=== PATIENT | female | born 1960 | race Caucasian/White ===

== ENCOUNTER 2016-09-17 11:16 | Emergency (ER) | payer OTHER ==
[~2016-09-17] VITALS: Ht 157.5 cm; Wt 52.2 kg
[~2016-09-17 11:16] MED LIST: CYCL5TAB PO; NAPR500T3 PO
--- NOTE | 2016-09-17 11:45 | ED Back Pain ---
General Chief Complaint: -Female Stated Complaint: L SIDE BACK/LEG PAIN Nursing Triage Note: Pt presents to ED with c/o bilateral flank pain and foul smelling urine. Pt reports chronic right flank pain x 1 year, left side began hurting 3 days ago. Afebrile in triage. Nursing Sepsis Screen: No Definite Risk History of Present Illness Time Seen by Provider: 11:41 Initial Comments This 56-year-old white female presents to emergency department with bilateral flank pain and foul-smelling urine. Patient relates her symptoms began 3 days ago. Patient relates an history of kidney stones and urinary tract infections. Patient also relates that her pain is made worse with leg movement. The pain radiates from low back down the posterior thighs. She denies loss of bowel or bladder control. She's had no perineal anesthesia. The patient denies fever or chill, vomiting, hematuria, diarrhea, vomiting, or epigastric pain. Allergies and Home Medications Allergies Coded Allergies: Penicillins (Verified Allergy, Mild, 08/12/15) Home Medications Cyclobenzaprine HCl 5 Mg Tablet #15 5 MG PO Q8H Prescribed by: LISETH RANDALL on 08/12/15 1330 Naproxen 500 Mg Tablet #20 500 MG PO BID Prescribed by: LISETH RANDALL on 08/12/15 1330 Constitutional: No chills, No fever EENTM: No eye pain Respiratory: No cough Cardiovascular: No chest pain Gastrointestinal: No abdominal pain, No diarrhea, No vomiting Genitourinary: dysuria other (malodorous urine) Musculoskeletal: other (bilateral flank pain) Skin: No rash Psychiatric/Neurological: No Symptoms Reported Past [id number]-Jajphd-Swawcq Hx Patient Social History Alcohol Use: Denies Use Recreational Drug Use: No Smoking Status: Current Everyday Smoker Type Used: Cigarettes Recent Foreign Travel: No Contact w/Someone Who Travel: No Recent Infectious Disease Expo: No Recent Hopitalizations: No Physical Abuse Screen: No Sexual Abuse: No Surgeries HX Surgeries: Yes Surgeries: Adenoidectomy, Gallbladder, Tonsillectomy, Tubal Ligation Respiratory Hx Respiratory Disorders: No Cardiovascular Hx Cardiac Disorders: No Neurological Hx Neurological Disorders: No Reproductive System [employer] History: Tubal Ligation Genitourinary Hx Genitourinary Disorders: No Gastrointestinal Hx Gastrointestinal Disorders: Yes Gastrointestinal Disorders: Gastroesophageal Reflux Musculoskeletal Hx Musculoskeletal Disorders: Yes Musculoskeletal Disorders: Chronic Back Pain Endocrine Hx Endocrine Disorders: No HEENT HX ENT Disorders: No Cancer Hx Cancer: No Psychosocial Hx Psychiatric Problems: No Integumentary HX Skin/Integumentary Disorder: No Blood Transfusions Hx Blood Disorders: No Adverse Reaction to a Blood Tr: No Reviewed Nursing Assessment Reviewed/Agree w Nursing PMH: Yes Physical Exam Vital Signs Vital Sign - Last 12Hours 09/17/16 11:22 Temp 97.6 Pulse 70 Resp 18 B/P 117/75 Pulse Ox 97 O2 Delivery Room Air Capillary Refill : Less Than 3 Seconds General Appearance: Cachetic Mild Distress HEENT: Normal ENT Inspection Neck: Normal Inspection Cardiovascular: Regular Rate, Rhythm Respiratory: No Respiratory Distress Decreased Breath Sounds Gastrointestinal: Normal Bowel Sounds No Organomegaly Non Tender Soft Extremity: Normal Inspection Normal Range of Motion Neurologic/Psychiatric: No Motor/Sensory Deficits Normal Mood/Affect Skin: Normal Color Warm/DryNo Rash Progress/Results/Core Measures Results/Orders Lab Results Laboratory Tests Test 09/17/16 11:32 09/17/16 11:37 Range/Units Urine Bacteria NEGATIVE /HPF Urine Bilirubin NEGATIVE NEGATIVE Urine Casts NONE /LPF Urine Clarity CLEAR Urine Color YELLOW Urine Crystals NONE /LPF Urine Culture Indicated NO Urine Glucose (UA) NEGATIVE NEGATIVE Urine Ketones NEGATIVE NEGATIVE Urine Leukocyte Esterase 3+ H NEGATIVE Urine Mucus NEGATIVE /LPF Urine Nitrite NEGATIVE NEGATIVE Urine Protein NEGATIVE NEGATIVE Urine RBC 0-2 /HPF Urine RBC (Auto) 2+ H NEGATIVE Urine Specific [place] 1.015 L 1.016-1.022 Urine Squamous Epithelial Cells 2-5 /HPF Urine Urobilinogen NORMAL NORMAL MG/DL Urine WBC 2-5 /HPF Urine pH 6 5-9 Alanine Aminotransferase (ALT/SGPT) 13 0-55 U/L Albumin 4.0 3.2-4.5 G/DL Alkaline Phosphatase 83 40-136 U/L Anion Gap 10 5-14 MMOL/L Aspartate Amino Transf (AST/SGOT) 17 5-34 U/L BUN/Creatinine Ratio 19 Basophils # (Auto) 0.0 0.0-0.1 10^3/uL Basophils (%) (Auto) 1 0-10 % Blood Urea Nitrogen 14 7-18 MG/DL Calcium Level 9.6 8.5-10.1 MG/DL Carbon Dioxide Level 24 21-32 MMOL/L Chloride Level 105 98-107 MMOL/L Creatinine 0.72 0.60-1.30 MG/DL Eosinophils # (Auto) 0.1 0.0-0.3 10^3/uL Eosinophils (%) (Auto) 2 0-10 % Estimat Glomerular Filtration Rate > 60 Glucose Level 82 70-105 MG/DL Hematocrit 42 35-52 % Hemoglobin 14.4 11.5-16.0 G/DL Lymphocytes # (Auto) 1.4 1.0-4.0 X 10^3 Lymphocytes (%) (Auto) 25 12-44 % Mean Corpuscular Hemoglobin 30 25-34 PG Mean Corpuscular Hemoglobin Concent 34 32-36 G/DL Mean Corpuscular Volume 87 80-99 FL Mean Platelet Volume 10.1 7.4-10.4 FL Monocytes # (Auto) 0.5 0.0-1.0 X 10^3 Monocytes (%) (Auto) 9 0-12 % Neutrophils # (Auto) 3.7 1.8-7.8 X 10^3 Neutrophils (%) (Auto) 64 42-75 % Platelet Count 136 130-400 10^3/uL Potassium Level 3.9 3.6-5.0 MMOL/L Red Blood Count 4.86 4.35-5.85 10^6/uL Red Cell Distribution Width 13.9 10.0-14.5 % Sodium Level 139 135-145 MMOL/L Total Bilirubin 0.3 0.1-1.0 MG/DL Total Protein 6.8 6.4-8.2 G/DL White Blood Count 5.8 4.3-11.0 10^3/uL My Orders Orders-GUERITA MOROCHO MD Ua Culture If Indicated (09/17/16 11:35) Cbc With Automated Diff (09/17/16 11:35) Comprehensive Metabolic Panel (09/17/16 11:35) Ct Lumbar Spine Wo (09/17/16 11:38) Ct Abdomen/Pelvis Wo (09/17/16 12:07) Urine Culture (09/17/16 13:27) Vital Signs/I&O Vital Sign - Last 12Hours 09/17/16 11:22 Temp 97.6 Pulse 70 Resp 18 B/P 117/75 Pulse Ox 97 O2 Delivery Room Air Blood Pressure Mean: 89 Progress Note : Time: 13:39 Progress Note The patient's CTs demonstrated evidence of significant compression of the sciatic nerve. Although there was diffuse nephrolithiasis present there was no evidence of acute ureteral stone. The patient's urinalysis was suggestive of a urinary tract infection. A culture was obtained. I discussed with the patient the findings and recommended a course of antibiotics (Cipro) for her urinary tract infection and gave her a prescription of hydrocodone for her back pain. I asked that she follow-up with her caregiver at [facility] on Monday. I invited her to return to the emergency department over the weekend if she had any further problems or questions. Departure Impression Impression: Primary Impression: Kidney stones Additional Impressions: UTI (urinary tract infection) Qualified Code: N30.00 - Acute cystitis without hematuria Sciatic neuritis Qualified Code: M54.31 - Sciatica, right side Disposition: HOME, SELF-CARE Condition: Unchanged Departure-Patient Inst. Decision time for Depature: 13:42 Referrals: [facility] (PCP/Family) Primary Care Physician Patient Instructions: Acute Cystitis (DC), Kidney Stones (DC), Sciatica (DC) Add. Discharge Instructions: Cipro and hydrocodone as prescribed. Close follow-up with [facility] on Monday. Return of any problems or questions. All discharge instructions reviewed with patient and/or family. Voiced understanding. GUERITA MOROCHO MD Sep 17, 2016 11:45
[2016-09-17 11:51] LABS: BASOPHILS % (AUTO) 1 % (0-10); EOSINOPHILS # (AUTO) 0.1 10^3/uL (0.0-0.3); EOSINOPHILS % (AUTO) 2 % (0-10); LYMPHOCYTES # (AUTO) 1.4 X 10^3 (1.0-4.0); LYMPHOCYTES % (AUTO) 25 % (12-44); MEAN CORPUSCULAR HEMOGLOBIN 30 PG (25-34); MEAN CORPUSCULAR HGB CONC 34 G/DL (32-36); MEAN CORPUSCULAR VOLUME 87 FL (80-99); MEAN PLATELET VOLUME 10.1 FL (7.4-10.4); MONOCYTES # (AUTO) 0.5 X 10^3 (0.0-1.0); MONOCYTES % (AUTO) 9 % (0-12); NEUTROPHILS # (AUTO) 3.7 X 10^3 (1.8-7.8); NEUTROPHILS % (AUTO) 64 % (42-75); PLATELET COUNT 136 10^3/uL (130-400); RED BLOOD COUNT 4.86 10^6/uL (4.35-5.85); RED CELL DISTRIBUTION WIDTH 13.9 % (10.0-14.5); WHITE BLOOD COUNT 5.8 10^3/uL (4.3-11.0)
[2016-09-17 11:57] LABS: PH,URINE 6 (5-9); PROTEIN,URINE NEGATIVE (NEGATIVE)
[2016-09-17 11:58] LABS: BILIRUBIN,URINE NEGATIVE (NEGATIVE); KETONES,URINE NEGATIVE (NEGATIVE); LEUKOCYTE ESTERASE ,URINE 3+ (NEGATIVE); NITRITE,URINE NEGATIVE (NEGATIVE); UROBILINOGEN,URINE NORMAL (NORMAL)
[2016-09-17 12:25] LABS: ALANINE AMINOTRANSFERASE 13 U/L (0-55); ANION GAP 10 MMOL/L (5-14); ASPARTATE AMINO TRANSFERASE 17 U/L (5-34); BILIRUBIN,TOTAL 0.3 MG/DL (0.1-1.0); BLOOD UREA NITROGEN 14 MG/DL (7-18); BUN/CREATININE RATIO 19; CALCIUM 9.6 MG/DL (8.5-10.1); CARBON DIOXIDE 24 MMOL/L (21-32); CHLORIDE 105 MMOL/L (98-107); CREATININE SERUM 0.72 MG/DL (0.60-1.30); GFR ESTIMATED > 60; GLUCOSE 82 MG/DL (70-105); POTASSIUM 3.9 MMOL/L (3.6-5.0); SODIUM 139 MMOL/L (135-145); TOTAL PROTEIN 6.8 G/DL (6.4-8.2)
--- NOTE | 2016-09-17 12:38 | Diagnostic Imaging Report ---
PROCEDURE: CT lumbar spine without contrast. TECHNIQUE: Multiple contiguous axial images were obtained through the lumbar spine without the use of intravenous contrast. Sagittal and coronal reformations were then performed. INDICATION: Chronic low back pain. Left leg pain x1 year. FINDINGS: Reformatted images demonstrate relatively normal alignment of the lumbar spine. Lumbar vertebral body heights are maintained. The intervertebral disc spaces overall are fairly well-maintained. Slight asymmetric disc bulge is suggested at the L4-L5 and L5-S1 levels with minimal encroachment and effacement of the perineural fat bilaterally. Definitive nerve impingement however does not appear to be present. L3-L4 and L4-5 levels both demonstrate ligamentum facet hypertrophy with [id number] spinal canal narrowing, particularly at the L4-L5 level. Paraspinal soft tissues demonstrate multiple renal stones and the possibility of underlying medullar nephrocalcinosis. Definitive obstructive uropathy however is not suggested. IMPRESSION: 1. Negative for acute bony abnormality of the lumbar spine. 2. There does appear to be at least moderate severity spinal canal narrowing at the L4-5 level in combination with a broad-based disc bulge along with ligamentum facet hypertrophy. Less severe findings at L3-L4 level. There is also mild foraminal narrowing at L4-5 and L5-S1 levels owing to disc osteophyte formation. 3. 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 Given overall findings, if further assessment is desired, a nonemergent MRI would be recommended. Dictated by: Dictated on workstation # [id number]
--- NOTE | 2016-09-17 12:39 | Diagnostic Imaging Report ---
PROCEDURE: CT abdomen and pelvis without contrast. TECHNIQUE: Multiple contiguous axial images were obtained through the abdomen and pelvis without the use of intravenous contrast. INDICATION: Pain, history of nephrolithiasis. Compared to 05/05/2016. FINDINGS: Bilateral renal calculus disease unchanged in extent and magnitude from prior but no hydronephrosis, no perinephric edema. No opaque ureteral stone. The urinary bladder had an unremarkable appearance. Some pelvic phleboliths on the right chronic and extraureteral. Uterus, adnexa and urinary bladder normal. The air-containing appendix normal. There is no diverticulitis. The gallbladder surgically absent. Pancreas and peripancreatic fat unremarkable. There are splenic granulomata with normal spleen size. IMPRESSION: Extensive bilateral renal calculus disease but no hydronephrosis or opaque ureteral stone. Negative appendix. No adnexal lesion. No acute finding. Dictated by: Dictated on workstation # [id number]
[2016-09-17 13:56] VITALS: BP 120/70
== END 2016-09-17 13:56 | disposition home or self-care (01) ==
LOC: EDUNIT# 11:16 → ER 11:18
DX: N20.0 Calculus of kidney (principal); N39.0 Urinary tract infection, site not specified; M48.06 Spinal stenosis, lumbar region; M51.16 Intervertebral disc disorders with radiculopathy, lumbar region
CPT/HCPCS: 36415; 72131; 74176; 80053; 81000; 85025; 87088

== ENCOUNTER 2016-10-28 09:40 | Outpatient (CLI) | payer OTHER ==
[~2016-10-28] VITALS: Ht 157.5 cm; Wt 54.4 kg
[2016-10-28] MEDS ORDERED: TRIAMCINOLONE ACET (KENALOG-40) 40 MG/ML 1 ML VIAL ONE (09:50)
[2016-10-28] MEDS ORDERED: BUPIVACAINE 0.25% 30 ML (SENSORCAINE) VIAL ONE (09:50)
[2016-10-28 10:01] VITALS: BP 110/70
[2016-10-28 10:29] VITALS: BP 116/62
--- NOTE | 2016-10-28 14:15 | Pain Medicine-Procedure ---
Procedure Pre-Op/Post-Op Diagnosis Diagnosis: disc disorder with radiculopathy, lumbar Indications for Operation Low back pain Attending Surgeon Rachel Procedure Date of Service: Oct 28, 2016 Procedure: Lumbar Epidural Steroid Injection at the L4-L5 level under Fluoroscopic Guidance Procedure: Patient was identified in the holding area. After risks, benefits, and alternatives were discussed with the patient, informed consent was obtained. Patient was brought to the fluoroscopy suite and placed prone on the procedure room table. A time out was performed. Vital signs were monitored throughout the procedure. The patients low back was prepped and draped in the usual sterile fashion. The patients skin was anesthetized using 2% Lidocaine. A Tuohy needle was inserted and advanced to the L4-L5 epidural space under fluoroscopic guidance using the loss of resistance technique and intermittent projection of fluoroscopy. There was no paresthesia with needle placement. The needle position was confirmed in both the AP and lateral view. After negative aspiration 2ml of contrast was injected under live fluoroscopy which showed good spread of the contrast in the epidural space at the appropriate level, there was no intravascular or subarachnoid spread. Again, after negative aspiration for heme or CSF, 2 ml of 0.25% Bupivicaine, 2ml of preservative free normal saline, and 80mg of Kenalog was injected. The needle was removed and a sterile bandage was placed and the patient was transferred to the recovery area in stable condition. After a brief period of observation, patient was discharged to home with no new neurological deficits and no apparent complications. Complications None MARIANNA SANCHEZ MD Oct 28, 2016 2:14 pm
== END 2016-10-28 10:30 ==
LOC: CARD 09:40
PROVIDERS: ATTEND Pain Medicine Pain Medicine
DX: M51.16 Intervertebral disc disorders with radiculopathy, lumbar region (principal); M47.816 Spondylosis without myelopathy or radiculopathy, lumbar region; Z79.899 Other long term (current) drug therapy
CPT/HCPCS: 62323

== ENCOUNTER 2016-11-11 13:09 | Outpatient (CLI) | payer OTHER ==
[~2016-11-11] VITALS: Ht 157.5 cm; Wt 56.7 kg
[2016-11-11] MEDS ORDERED: TRIAMCINOLONE ACET (KENALOG-40) 40 MG/ML 1 ML VIAL ONE (13:19)
[2016-11-11] MEDS ORDERED: BUPIVACAINE 0.25% 30 ML (SENSORCAINE) VIAL ONE (13:19)
[2016-11-11 13:28] VITALS: BP 110/68
[2016-11-11 14:13] VITALS: BP 113/79
--- NOTE | 2016-11-11 15:01 | Pain Medicine-Procedure ---
Procedure Pre-Op/Post-Op Diagnosis Diagnosis: disc disorder with radiculopathy, lumbar Indications for Operation low back and hip pain Attending Surgeon Rachel Procedure Date of Service: Nov 11, 2016 Procedure: Lumbar Epidural Steroid Injection at the L4-L5 Level under Fluoroscopic Guidance and left sacroiliac joint injection Procedure: Patient was identified in the holding area. After risks, benefits, and alternatives were discussed with the patient, informed consent was obtained. Patient was brought to the fluoroscopy suite and placed prone on the procedure room table. A time out was performed. Vital signs were monitored throughout the procedure. The patients low back was prepped and draped in the usual sterile fashion. The patients skin was anesthetized using 2% Lidocaine. A Tuohy needle was inserted and advanced to the L4-L5 epidural space under fluoroscopic guidance using the loss of resistance technique and intermittent projection of fluoroscopy. There was no paresthesia with needle placement. The needle position was confirmed in both the AP and lateral view. After negative aspiration 2ml of non-ionic contrast was injected under live fluoroscopy which showed good spread of the contrast in the epidural space at the appropriate level, there was no intravascular or subarachnoid spread. Again, after negative aspiration for heme or CSF, 2 ml of 0.25% Bupivicaine, 2ml of preservative free normal saline, and 80mg of Kenalog was injected. The needle was removed and a sterile bandage was placed. Attention was then directed to the left sacroiliac joint which was identified under fluoroscopic guidance. The skin overlying the posterior inferior one third of the sacroiliac joint was anesthetized with 1 percent lidocaine and a 22 -gauge 3-1/2 inch needle was inserted and advanced into the joint. Following negative aspiration a total of 40 mg of Kenalog and 2 mL of 0.25 percent bupivacaine was injected. Needle was flushed with lidocaine and removed. Sterile bandage was applied. Patient tolerated the procedures well with no apparent complications. Complications none MARIANNA SANCHEZ MD Nov 11, 2016 3:01 pm
== END 2016-11-11 14:19 ==
LOC: CARD 13:09
PROVIDERS: ATTEND Pain Medicine Pain Medicine
DX: M51.16 Intervertebral disc disorders with radiculopathy, lumbar region (principal); M53.3 Sacrococcygeal disorders, not elsewhere classified; M47.816 Spondylosis without myelopathy or radiculopathy, lumbar region; Z79.899 Other long term (current) drug therapy
CPT/HCPCS: 27096; 62323